=== PATIENT | female | born 1960 | race African-American/Black ===

== ENCOUNTER 2016-06-16 20:15 | Emergency (ER) | payer MEDICAID ==
[~2016-06-16] VITALS: Ht 180.3 cm; Wt 176.9 kg
[2016-06-16 20:51] VITALS: BP 175/84
== END 2016-06-16 23:30 | disposition left against medical advice (07) ==
LOC: ER 20:21
DX: S61.011A Laceration without foreign body of right thumb without damage to nail, initial encounter (principal); Z53.21 Procedure and treatment not carried out due to patient leaving prior to being seen by health care provider; W26.8XXA Contact with other sharp object(s), not elsewhere classified, initial encounter; Y93.89 Activity, other specified; Y99.8 Other external cause status; Y92.89 Other specified places as the place of occurrence of the external cause